=== PATIENT | male | born 1995 | race Caucasian/White ===

== ENCOUNTER 2017-11-16 17:55 | Emergency (ER) | payer BC, OTHER ==
--- NOTE | 2017-11-16 18:14 | EDPHY ---
H & P Time Seen by Provider: 11/16/17 18:14 HPI/ROS: CHIEF COMPLAINT: Back pain after injury HISTORY OF PRESENT ILLNESS: The patient was [place] the [place] [employer] [place] today when he did a back flip at 2:30 p.m. And over rotated landing on the tails of his skis and then on his back. He presents with low back pain which is moderate, does not radiate, a little bit worse with certain motions, not associated with weakness or numbness in extremities or incontinence. REVIEW OF SYSTEMS: Eye: no change in vision ENT: no sore throat Cardiac: no chest pain or syncope Pulmonary: no cough or SOB Abdomen: no vomiting, diarrhea, abdominal pain Musculoskeletal: HPI Skin: no rash Neuro: No weakness or numbness in extremities, no head injury or loss of consciousness. Constitutional: no fever : No incontinence, no hematuria A comprehensive 10 point review of systems is otherwise negative aside from elements mentioned in the history of present illness. PAST MEDICAL HISTORY: Previous lumbar spine fracture in 2016, the x-ray reports as transverse process fractures in L2 and L3 and possible compression in L2. Patient relates that he had of L1 fracture. Aortic stenosis diagnosed when he murmur was heard Social history: Nonsmoker General Appearance: Alert and conversant, cooperative. Eyes: No scleral icterus. ENT, Mouth: Normal mucous membranes. Respiratory: Normal respiratory effort, breath sounds equal, lungs are clear to auscultation. Cardiovascular: Regular rate and rhythm. 1/6 systolic murmur Gastrointestinal: Abdomen is soft and non tender. Neurological: Alert, face symmetric, normal motor and sensory in extremities. Ambulatory. Skin: Warm and dry, no rashes. Musculoskeletal: No cervical or thoracic spine tenderness to palpation, has tenderness to palpation at L1 and L2. Pelvis is stable. Psychiatric: Not agitated. Emergency Department course/MDM: Declined pain medication. Lumbar spine CT ordered because of previous fracture. 193: Negative lumbar spine CT reviewed with Dr. Avelar. Results discussed with the patient. Smoking Status: Never smoked Constitutional: Initial Vital Signs Temperature (C) 36.8 C 11/16/17 17:58 Heart Rate 94 11/16/17 17:58 Respiratory Rate 18 11/16/17 17:58 Blood Pressure 119/87 H 11/16/17 17:58 O2 Sat (%) 95 11/16/17 17:58 O2 Delivery Mode Room Air Allergies/Adverse Reactions: No Known Allergies Allergy (Verified 11/16/17 17:57) Home Medications: Medication Instructions Recorded NK [No Known Home Meds] 11/16/17 Medical Decision Making - Diagnostics Imaging Results: Imaging Impressions Lumbar Spine CT 11/16/17 18:20 Impression: Lumbar spine is negative for acute posttraumatic sequela. Results called and discussed with Dr. Clayton Riley on 11/16/2017 at 19:33. Imaging: Discussed imaging studies w/ clinic lead Radiologist Differential Diagnosis: Differential considered including but not limited to kidney injury, back contusion, spine fracture, spinal cord injury. - Data Points Medications Given: Discontinued Medications Oxycodone/Acetaminophen (Percocet 5/325mg Prepack#4) 1 btl TAKEHOME EDNOW ONE Stop: 11/16/17 18:42 Last Admin: 11/16/17 18:52 Dose: 1 btl Departure - Departure Disposition: Home, Routine, Self-Care Clinical Impression: Contusion of back Qualifiers: Encounter type: initial encounter Laterality: unspecified laterality Qualified Code(s): S20.229A - Contusion of unspecified back wall of thorax, initial encounter Condition: Good Instructions: Hydrocodone/Acetaminophen (By mouth) Additional Instructions: Activity as tolerated. Please follow up with primary care physician if not completely improved in 1 week. Return to the ER for worse or severe pain, any weakness or numbness in her legs , any blood in your urine. Referrals: Sahara Woodall MD [Medical Doctor] - As per Instructions
[2017-11-16] MEDS ORDERED: OXYCODONE/APAP 5/325MG PREPACK#4 BTL TAKEHOME ONE (18:41)
[2017-11-16 19:52] VITALS: BP 120/82
== END 2017-11-16 19:51 | disposition home or self-care (01) ==
DX: S20.229A Contusion of unspecified back wall of thorax, initial encounter (principal); V00.321A Fall from snow-skis, initial encounter; Y92.89 Other specified places as the place of occurrence of the external cause